=== PATIENT | female | born 1945 | race Caucasian/White ===

== ENCOUNTER 2018-05-02 04:43 | Emergency (ER) | payer OTHER, BC ==
--- NOTE | 2018-05-02 05:55 | EDPHYS ---
Physician Documentation [facility] Name: Yvette Barbour Age: 72 yrs Sex: Female : 1945 Arrival Date: 05/02/2018 Time: 04:52 Bed 17 Private MD: ED Physician Bonifacio Jones Historical: - Allergies: 05/02 05:04 No Known Allergies; jd3 - Home Meds: 05:04 alendronate oral oral [Active]; levothyroxine oral [Active]; meloxicam oral oral jd3 [Active]; Metoprolol Tartrate Oral [Active]; Omeprazole Oral [Active]; venlafaxine oral oral [Active]; Xarelto oral oral [Active]; - PMHx: 05:04 Atrial Fib; Hypertension; High Cholesterol; jd3 - PSHx: 05:04 right knee sx; Hysterectomy; Tonsillectomy; back sx; left breast sx; jd3 - Immunization history:: Adult Immunizations up to date. - Social history:: Smoking status: Patient/guardian denies using tobacco, the patient reports quitting approximately 32 years ago. - Ebola Screening: : Patient negative for fever greater than or equal to 101.5 degrees Fahrenheit, and additional compatible Ebola Virus Disease symptoms. Vital Signs: 05:05 BP 131 / 65; Pulse 69; Resp 18 S; Temp 97.8(O); Pulse Ox 95% on R/A; Weight 88 kg (R); jd3 Height 5 ft. 6 in. (167.64 cm) (R); Pain 10/10; 05:33 BP 131 / 61; Pulse 70; Resp 17 S; Pulse Ox 95% on 2 lpm NC; jd3 05:05 Body Mass Index 31.31 (88.00 kg, 167.64 cm) jd3 MDM: 05:55 Patient medically screened. kdr Administered Medications: No medications were administered Disposition: 05/02/18 05:55 Discharged to Home. Impression: Other slipping, tripping and stumbling and falls, Pain in right knee - Chronic. - Condition is Stable. - Discharge Instructions: Musculoskeletal Pain, Fall Prevention and Home Safety, [id number], Knee Pain, [id number]. - Medication Reconciliation Form, Thank You Letter form. - Follow up: Private Physician; When: 2 - 3 days; Reason: If symptoms return, Further diagnostic work-up, Recheck today's complaints, Continuance of care, Re-evaluation by your physician. - Problem is an ongoing problem. - Symptoms are unchanged. Signatures: Bonifacio Jones MD MD kdr Jose Patel RN RN jd3 Corrections: (The following items were deleted from the chart) 06:14 05:55 05/02/2018 05:55 Discharged to Home. Impression: Other slipping, tripping and jd3 stumbling and falls; Pain in right knee - Chronic. Condition is Stable. Forms are Medication Reconciliation Form, Thank You Letter, Antibiotic Education, Prescription Opioid Use. Follow up: Private Physician; When: 2 - 3 days; Reason: If symptoms return, Further diagnostic work-up, Recheck today's complaints, Continuance of care, Re-evaluation by your physician. Problem is an ongoing problem. Symptoms are unchanged. kdr
--- NOTE | 2018-05-02 05:55 | ER ---
Nurse's Notes [facility] Name: Yvette Barbour Age: 72 yrs Sex: Female : 1945 Arrival Date: 05/02/2018 Time: 04:52 Bed 17 Private MD: Diagnosis: Other slipping, tripping and stumbling and falls;Pain in right knee-Chronic Presentation: 05/02 04:52 Presenting complaint: EMS states: Pt had fallen this morning and when helped her up to jd3 bed, but pt refused to go to the hospital. We were called back out with pt reporting 10/10 pain in right knee which pt has had surgery the last Friday, April 22, 2018.". Transition of care: patient was not received from another setting of care. Onset of symptoms was May 02, 2018. Risk Assessment: Do you want to hurt yourself or someone else? Patient reports no desire to harm self or others. Initial Sepsis Screen: Does the patient meet any 2 criteria? No. Patient's initial sepsis screen is negative. Does the patient have a suspected source of infection? No. Patient's initial sepsis screen is negative. Care prior to arrival: Medication(s) given: pt took hydrocodone at 0430 and at 0330. 04:52 Method Of Arrival: EMS: [facility] jd3 04:52 Acuity: [place] 3 jd3 Historical: - Allergies: 05:04 No Known Allergies; jd3 - Home Meds: 05:04 alendronate oral oral [Active]; levothyroxine oral [Active]; meloxicam oral oral jd3 [Active]; Metoprolol Tartrate Oral [Active]; Omeprazole Oral [Active]; venlafaxine oral oral [Active]; Xarelto oral oral [Active]; - PMHx: 05:04 Atrial Fib; Hypertension; High Cholesterol; jd3 - PSHx: 05:04 right knee sx; Hysterectomy; Tonsillectomy; back sx; left breast sx; jd3 - Immunization history:: Adult Immunizations up to date. - Social history:: Smoking status: Patient/guardian denies using tobacco, the patient reports quitting approximately 32 years ago. - Ebola Screening: : Patient negative for fever greater than or equal to 101.5 degrees Fahrenheit, and additional compatible Ebola Virus Disease symptoms. Screenin:10 Abuse screen: Denies threats or abuse. Nutritional screening: No deficits noted. jd3 Tuberculosis screening: No symptoms or risk factors identified. Fall Risk Ambulatory Aid- Crutches/Cane/Walker (15 pts). Gait- Impaired (20 pts.). Mental Status- Oriented to own ability (0 pts). Total García Fall Scale indicates Low Risk Score (25-44 pts). Fall prevention measures have been instituted. Side Rails Up X 2 Placed close to Nursing Station Frequent Obs/Assesments occuring. Assessment: 05:06 General: Appears uncomfortable, Behavior is calm, cooperative, appropriate for age. jd3 Pain: Complains of pain in right knee Pain currently is 10 out of 10 on a pain scale. Quality of pain is described as aching, sharp, Is continuous, Aggravated by increased activity, weight bearing. Neuro: Level of Consciousness is awake, alert, obeys commands, Oriented to person, place, time, situation. Cardiovascular: Capillary refill < 3 seconds Patient's skin is warm and dry. Respiratory: Airway is patent Respiratory effort is even, unlabored, Respiratory pattern is regular, symmetrical. GI: Abdomen is round Patient currently denies nausea, vomiting. : No signs and/or symptoms were reported regarding the genitourinary system. EENT: No signs and/or symptoms were reported regarding the EENT system. Derm: Skin is intact, Skin is dry, Skin is normal, Skin temperature is warm surgical sight to right knee, with dressing in place. no drainage noted to dressing. Musculoskeletal: Circulation, motion, and sensation intact. Range of motion: intact in all extremities. 05:34 Reassessment: Patient appears in no apparent distress at this time. Patient and/or jd3 family updated on plan of care and expected duration. Pain level reassessed. Patient is alert, oriented x 3, equal unlabored respirations, skin warm/dry/pink. pt reports pain medication taken prior to arrival has kicked in, pt requesting to go home, provider notified. 06:11 Reassessment: Patient appears in no apparent distress at this time. Patient and/or jd3 family updated on plan of care and expected duration. Pain level reassessed. Patient is alert, oriented x 3, equal unlabored respirations, skin warm/dry/pink. pt reported understanding of discharge instructions, pt assisted to front of ER in wheelchair. Vital Signs: 05:05 BP 131 / 65; Pulse 69; Resp 18 S; Temp 97.8(O); Pulse Ox 95% on R/A; Weight 88 kg (R); jd3 Height 5 ft. 6 in. (167.64 cm) (R); Pain 10/10; 05:33 BP 131 / 61; Pulse 70; Resp 17 S; Pulse Ox 95% on 2 lpm NC; jd3 05:05 Body Mass Index 31.31 (88.00 kg, 167.64 cm) jd3 ED Course: 04:52 Patient arrived in ED. jd3 04:52 Bonifacio Jones MD is Attending Physician. kdr 05:00 Triage completed. jd3 05:06 Arm band placed on. jd3 05:10 Patient has correct armband on for positive identification. Bed in low position. Call jd3 light in reach. Side rails up X2. 05:15 Jose Patel, RN is Primary Nurse. jd3 06:10 No provider procedures requiring assistance completed. Patient did not have IV access jd3 during this emergency room visit. Administered Medications: No medications were administered Outcome: 05:55 Discharge ordered by . kdr 06:11 Discharged to home via wheelchair, with family. jd3 06:11 Condition: stable 06:11 Discharge instructions given to patient, family, Instructed on discharge instructions, follow up and referral plans. Demonstrated understanding of instructions, follow-up care. 06:14 Patient left the ED. jd3 Signatures: Bonifacio Jones MD MD [facility] Jose Patel, RN RN j
== END 2018-05-02 06:14 | disposition home or self-care (01) ==
LOC: ER 04:43
DX: M25.561 Pain in right knee (principal); I10 Essential (primary) hypertension; I48.91 Unspecified atrial fibrillation; E78.00 Pure hypercholesterolemia, unspecified; W01.0XXA Fall on same level from slipping, tripping and stumbling without subsequent striking against object, initial encounter; Y93.01 Activity, walking, marching and hiking; Y92.002 Bathroom of unspecified non-institutional (private) residence as the place of occurrence of the external cause
CPT/HCPCS: 99283

== ENCOUNTER 2018-12-18 10:19 | Emergency (ER) | payer OTHER, BC ==
[2018-12-18 10:58] LABS: Absolute Lymphocytes (CBC) 2.1 K/uL (0.7-4.9); Absolute Monocytes 0.6 K/uL (0.1-1.3); Absolute Neutrophil 4.2 K/uL (1.8-8.0); Basophils % 0.6 % (0-1.3); Hematocrit 36.8 % (36.0-45.0); Lymphocytes % 29.6 % (15.3-44.8); MPV 8.4 fL (7.6-11.3); Monocytes % 8.4 % (3.3-12.3)
[2018-12-18 11:04] LABS: Potassium 4.1 mmol/L (3.5-5.1)
--- NOTE | 2018-12-18 11:05 | RAD REPORT ---
EXAM DESCRIPTION: CT - Head Brain Wo Cont - 12/18/2018 10:52 am CLINICAL HISTORY: Confusion. Fall with head injury COMPARISON: None TECHNIQUE: Computed axial tomography of the head was obtained. IV contrast was not requested. All CT scans are performed using dose optimization technique as appropriate and may include automated exposure control or mA/KV adjustment according to patient size. FINDINGS: An intracranial bleed is not seen . The ventricles are normal in caliber. Cerebral atrophy is present No extra-axial fluid collection is noted. Moderate low-density areas within periventricular, deep and subcortical white matter likely represent ischemic changes secondary to small vessel disease. Fluid within the sinuses/ mastoids is not seen. IMPRESSION: No acute intracranial abnormality is seen. If patient's symptoms persist MRI of the bra in would be recommended.
--- NOTE | 2018-12-18 11:18 | RAD REPORT ---
EXAM DESCRIPTION: RAD - Knee Right 3 View - 12/18/2018 10:50 am CLINICAL HISTORY: Right knee pain FINDINGS: No fracture or dislocation is seen. Right knee arthroplasty. The medial aspect of the tibial prosthesis is offset with the medial aspect of the tibia by about 8 millimeters. No loosening of prosthesis is seen
[2018-12-18 12:24] LABS: Urine Bacteria <20 /HPF (<20); Urine RBC <5 /HPF (NONE SEEN)
[2018-12-18 12:25] LABS: Calcium Oxalate Crystals- Ur FEW (NONE SEEN); Urine Culture Reflex Order NOT NEEDED; Urine Mucus 3+ /HPF (NONE SEEN)
[2018-12-18 12:44] LABS: Urine Blood NEGATIVE (NEG); Urine Glucose NEGATIVE (NEG); Urine Protein NEGATIVE (NEG); Urine Specific Gravity 1.025 (1.005-1.030); Urine pH 5.5 (5.0-7.0)
--- NOTE | 2018-12-18 12:55 | EDPHYS ---
Physician Documentation [facility] Name: Yvette Barbour Age: 73 yrs Sex: Female : 1945 Arrival Date: 12/18/2018 Time: 10:27 Bed 16 Private MD: ED Physician Bonifacio Jones HPI: 12/18 10:55 This 73 yrs old Female presents to ER via EMS with complaints of Fall Injury, jr8 Altered Mental Status. 10:55 Details of fall: The patient fell from an upright position, while standing. Onset: The jr8 symptoms/episode began/occurred acutely, yesterday. Associated injuries: The patient sustained right knee. Severity of symptoms: At their worst the symptoms were mild, in the emergency department the symptoms are unchanged. The patient has not experienced similar symptoms in the past. The patient has not recently seen a physician. Daughter stated that she was with patient last night. When she came to check on her this morning noticed that she cannot recall that she had visited her and seems more confused in general. History of dementia but normally is not altered to this capacity . Historical: - Allergies: 10:33 No Known Allergies; em - Home Meds: 10:33 Metoprolol Tartrate Oral [Active]; Eliquis oral oral [Active]; em - PMHx: 10:33 Atrial Fib; High Cholesterol; Hypertension; em - PSHx: 10:33 right knee x 3; em - Immunization history:: Adult Immunizations unknown. - Social history:: Smoking status: unknown. - Ebola Screening: : Patient negative for fever greater than or equal to 101.5 degrees Fahrenheit, and additional compatible Ebola Virus Disease symptoms Patient denies exposure to infectious person Patient denies travel to an Ebola-affected area in the 21 days before illness onset No symptoms or risks identified at this time. ROS: 10:55 Eyes: Negative for injury, pain, redness, and discharge, ENT: Negative for injury, jr8 pain, and discharge, Neck: Negative for injury, pain, and swelling, Cardiovascular: Negative for chest pain, palpitations, and edema, Respiratory: Negative for shortness of breath, cough, wheezing, and pleuritic chest pain, Abdomen/GI: Negative for abdominal pain, nausea, vomiting, diarrhea, and constipation, Back: Negative for injury and pain, Skin: Negative for injury, rash, and discoloration. 10:55 MS/extremity: Positive for pain, tenderness, of the right knee. 10:55 Neuro: Positive for altered mental status, Negative for dizziness, gait disturbance, headache, hearing loss, loss of consciousness, numbness, seizure activity, speech changes, syncope, near syncope, tingling, tinnitus, tremor, visual changes, weakness. Exam: 10:57 Eyes: Pupils equal round and reactive to light, extra-ocular motions intact. Lids and jr8 lashes normal. Conjunctiva and sclera are non-icteric and not injected. Cornea within normal limits. Periorbital areas with no swelling, redness, or edema. ENT: Nares patent. No nasal discharge, no septal abnormalities noted. Tympanic membranes are normal and external auditory canals are clear. Oropharynx with no redness, swelling, or masses, exudates, or evidence of obstruction, uvula midline. Mucous membranes moist. Neck: Trachea midline, no thyromegaly or masses palpated, and no cervical lymphadenopathy. Supple, full range of motion without nuchal rigidity, or vertebral point tenderness. No Meningismus. Cardiovascular: Regular rate and rhythm with a normal S1 and S2. No gallops, murmurs, or rubs. Normal PMI, no JVD. No pulse deficits. Respiratory: Lungs have equal breath sounds bilaterally, clear to auscultation and percussion. No rales, rhonchi or wheezes noted. No increased work of breathing, no retractions or nasal flaring. Abdomen/GI: Soft, non-tender, with normal bowel sounds. No distension or tympany. No guarding or rebound. No evidence of tenderness throughout. Back: No spinal tenderness. No costovertebral tenderness. Full range of motion. Skin: Warm, dry with normal turgor. Normal color with no rashes, no lesions, and no evidence of cellulitis. 10:57 Musculoskeletal/extremity: Extremities: grossly normal except: noted in the right knee: pain, tenderness, ROM: intact in all extremities, Circulation is intact in all extremities. Sensation intact. 11:01 Neuro: Orientation: to person, place, time, Mentation: able to follow commands, Memory: jr8 immediate memory is intact, remote memory is intact. recent memory is impaired, Cranial nerves: CN I not tested, CN II- XII are normal as tested, visual arreguin are intact. extraocular movements are intact, Facial palsy and sensory deficits are absent. Nystagmus is absent. Speech is clear and appropriate. Cerebellar function: normal finger to nose testing, heel to estes testing is normal, Motor: moves all fours, Sensation: is normal, Gait: not tested. seizure activity, is not displayed by the patient, Abnormal movements: there are no abnormal movements. Vital Signs: 10:33 BP 148 / 70; Pulse 70; Resp 18; Pulse Ox 96% on R/A; em 11:30 BP 142 / 74; Pulse 63; Resp 16; Pulse Ox 97% on R/A; em 12:30 BP 144 / 68; Pulse 60; Resp 18; Pulse Ox 96% on R/A; em 13:30 BP 129 / 75; Pulse 58; Resp 18; Pulse Ox 95% on R/A; em MDM: 10:27 Patient medically screened. jr8 12:51 Data reviewed: vital signs, nurses notes, lab test result(s), EKG, radiologic studies, [facility] CT scan. Data interpreted: Pulse oximetry: on room air is 96 %. Interpretation: normal. Counseling: I had a detailed discussion with the patient and/or guardian regarding: the historical points, exam findings, and any diagnostic results supporting the discharge/admit diagnosis, lab results, radiology results, the need for outpatient follow up, a family practitioner, to return to the emergency department if symptoms worsen or persist or if there are any questions or concerns that arise at home. ED course: Discussed with patient and daughter that there are no acute neurologic findings on CT. No fracture of knee. Labs unremarkable. No urinary tract infection, no electrolyte, glucose, systemic infection, focal neurologic deficit, or ECG findings. Patient feels well and wants to go home. Daughter taking patient back to her house for close observation. Would return if something were to change . 12/18 10:28 Order name: CBC with Diff [facility] 12/18 10:28 Order name: Basic Metabolic Panel [facility] 12/18 10:28 Order name: Urine Microscopic Only [facility] 12/18 11:00 Order name: CBC with Automated Diff; Complete Time: 11:03 EDMS 12/18 11:05 Order name: Basic Metabolic Panel; Complete Time: 11:12 EDMS 12/18 11:28 Order name: Urine Dipstick--Ancillary (enter results) 12/18 10:28 Order name: IV; Complete Time: 10:49 [facility] 12/18 10:28 Order name: CT Head Brain wo Cont [facility] 12/18 10:28 Order name: XRAY Knee RIGHT 3 view [facility] 12/18 10:28 Order name: EKG; Complete Time: 10:29 [facility] 12/18 11:06 Order name: CT; Complete Time: 11:12 [facility] 12/18 11:18 Order name: RAD; Complete Time: 11:23 [facility] 12/18 12:26 Order name: Urine Microscopic Only; Complete Time: 12:46 [facility] 12/18 12:45 Order name: Urine Dipstick-Ancillary; Complete Time: 12:46 [facility] 12/18 10:28 Order name: Urine Dipstick-Ancillary (obtain specimen); Complete Time: 11:27 [facility] 12/18 10:28 Order name: Straight Cath - Urine; Complete Time: 11:27 [facility] 12/18 10:28 Order name: EKG - Nurse/Tech; Complete Time: 10:38 [facility] Administered Medications: No medications were administered Disposition: 15:36 Co-signature as Attending Physician, Bonifacio Jones MD I agree with the assessment and kdr plan of care. Disposition: 12/18/18 12:54 Discharged to Home. Impression: Altered mental status, unspecified. - Condition is Stable. - Discharge Instructions: Confusion, Dementia. - Medication Reconciliation Form, Thank You Letter, Antibiotic Education, Prescription Opioid Use form. - Follow up: Private Physician; When: 1 - 2 days; Reason: Recheck today's complaints, Continuance of care, Re-evaluation by your physician. - Problem is new. - Symptoms have improved. Signatures: Dispatcher [employer] Bonifacio Paul MD MD [facility] Zoltan Mackey, [employer] em Tyrone William PA PA jr8 Corrections: (The following items were deleted from the chart) 11:03 10:57 Musculoskeletal/extremity: Extremities: grossly normal except: noted in the right jr8 knee: pain, tenderness, ROM: intact in all extremities, Circulation is intact in all extremities. Sensation intact. jr8 14:05 12:54 12/18/2018 12:54 Discharged to Home. Impression: Altered mental status, em unspecified. Condition is Stable. Forms are Medication Reconciliation Form, Thank You Letter, Antibiotic Education, Prescription Opioid Use. Follow up: Private Physician; When: 1 - 2 days; Reason: Recheck today's complaints, Continuance of care, Re-evaluation by your physician. Problem is new. Symptoms have improved. jr8
--- NOTE | 2018-12-18 12:55 | ER ---
Nurse's Notes [facility] Name: Yvette Barbour Age: 73 yrs Sex: Female : 1945 Arrival Date: 12/18/2018 Time: 10:27 Bed 16 Private MD: Diagnosis: Altered mental status, unspecified Presentation: 12/18 10:29 Presenting complaint: EMS states: called out for witnessed mechanical fall at an em independent living facility, pt daughter at bedside states she is more altered than normal, pt does not remember falling, patient is alert to person, place, pt complains of pain in the right knee. Transition of care: patient was not received from another setting of care. Onset of symptoms was December 18, 2018. Risk Assessment: Do you want to hurt yourself or someone else? Patient reports no desire to harm self or others. Initial Sepsis Screen: Does the patient meet any 2 criteria? No. Patient's initial sepsis screen is negative. Does the patient have a suspected source of infection? No. Patient's initial sepsis screen is negative. Care prior to arrival: None. 10:29 Method Of Arrival: EMS: [facility] em 10:37 Acuity: [place] 2 ss Triage Assessment: 10:33 General: Appears in no apparent distress. comfortable, Behavior is calm, cooperative. em Pain: Complains of pain in right knee. Neuro: Level of Consciousness is awake, alert, obeys commands, Oriented to person, place, Analytics Manager are equal bilaterally Moves all extremities. Speech is normal, Facial symmetry appears normal, Pupils are. Respiratory: Historical: - Allergies: 10:33 No Known Allergies; em - Home Meds: 10:33 Metoprolol Tartrate Oral [Active]; Eliquis oral oral [Active]; em - PMHx: 10:33 Atrial Fib; High Cholesterol; Hypertension; em - PSHx: 10:33 right knee x 3; em - Immunization history:: Adult Immunizations unknown. - Social history:: Smoking status: unknown. - Ebola Screening: : Patient negative for fever greater than or equal to 101.5 degrees Fahrenheit, and additional compatible Ebola Virus Disease symptoms Patient denies exposure to infectious person Patient denies travel to an Ebola-affected area in the 21 days before illness onset No symptoms or risks identified at this time. Screenin:33 Abuse screen: no apparent signs noted. Nutritional screening: No deficits noted. em Tuberculosis screening: No symptoms or risk factors identified. Fall Risk Fall in past 12 months (25 points). Assessment: 10:35 General: Appears in no apparent distress. comfortable, Behavior is calm, cooperative. em Pain: Complains of pain in right knee. Neuro: Level of Consciousness is awake, alert, obeys commands, Oriented to person, place, Analytics Manager are equal bilaterally Gait is Speech is normal, Denies weakness dizziness, headache. Cardiovascular: Capillary refill < 3 seconds Patient's skin is warm and dry. Rhythm is sinus rhythm. Respiratory: Airway is patent Respiratory effort is even, unlabored, Respiratory pattern is regular, symmetrical. GI: Patient currently denies nausea, vomiting. Derm: Skin is intact, is healthy with good turgor, Skin is pink, warm \T\ dry. Musculoskeletal: Range of motion: intact in all extremities. 10:40 Reassessment: Patient appears in no apparent distress at this time. I agree with the sv above assessment. 11:21 Reassessment: Patient appears in no apparent distress at this time. Patient and/or em family updated on plan of care and expected duration. Pain level reassessed. skin pink warm and dry, respirations even and unlabored, alert and oriented to self and situation. 12:00 Reassessment: Patient appears in no apparent distress at this time. Patient and/or em family updated on plan of care and expected duration. Pain level reassessed. skin pink warm and dry, respirations even and unlabored, alert and oriented to self and situation. 13:10 Reassessment: Patient appears in no apparent distress at this time. Patient and/or em family updated on plan of care and expected duration. Pain level reassessed. Patient is alert, oriented x 3, equal unlabored respirations, skin warm/dry/pink. placed for discharge, daughter went home to get pt clothes. Vital Signs: 10:33 BP 148 / 70; Pulse 70; Resp 18; Pulse Ox 96% on R/A; em 11:30 BP 142 / 74; Pulse 63; Resp 16; Pulse Ox 97% on R/A; em 12:30 BP 144 / 68; Pulse 60; Resp 18; Pulse Ox 96% on R/A; em 13:30 BP 129 / 75; Pulse 58; Resp 18; Pulse Ox 95% on R/A; em ED Course: 10:27 Patient arrived in ED. pm1 10:27 Tyrone William PA is PHCP. jr8 10:27 Bonifacio Jones MD is Attending Physician. jr8 10:29 Zoltan Mackey LVN is Primary Nurse. em 10:33 Arm band placed on. em 10:35 Patient has correct armband on for positive identification. Placed in gown. Bed in low em position. Call light in reach. Side rails up X2. Adult w/ patient. instructional technology teacher on. Pulse ox on. NIBP on. 10:38 Triage completed. ss 10:42 EKG done, by certification technician. reviewed by Tyrone CURRY. at1 10:49 X-ray completed. Portable x-ray completed in exam room. Patient tolerated procedure sw well. 10:49 Initial lab(s) drawn, by me, sent to lab. Inserted saline lock: 20 gauge in left ms antecubital area, using aseptic technique. Blood collected. 11:26 Straight cath inserted, using sterile technique, 16 Fr. Specimen obtained. Returned ms clear yellow urine. Patient tolerated well. 13:10 No provider procedures requiring assistance completed. IV discontinued, intact, em bleeding controlled, No redness/swelling at site. Pressure dressing applied. Administered Medications: No medications were administered Outcome: 12:54 Discharge ordered by . [email or web address] 14:04 Discharged to home via wheelchair, with family. em 14:04 Condition: good 14:04 Discharge instructions given to patient, family, Instructed on discharge instructions, follow up and referral plans. Demonstrated understanding of instructions, follow-up care. 14:05 Patient left the ED. em Signatures: Mariela King, RN RN Zoltan Mackey, SHIPPING SUPPORT CLERK SHIPPING SUPPORT CLERK em Damaris Sy ms, Shelby, RN RN ss Tyrone William PA PA jr8 Rosana Weber, secretary board of commissioners EKG Hari1 Leesa Fields Patrick, CASANDRA HOUSEKEEPING ROOM ATTENDANT pm1
--- NOTE | 2018-12-18 13:52 | EKG ---
Test Date: 2018-12-18 Test Time: 10:34:09 Road Mender: [place] MEASUREMENT RESULTS: Intervals: Rate: 66 OR: 170 QRSD: 70 QT: 404 QTc: 423 Pollock: P: 40 OR: 170 QRS: 36 T: 28 INTERPRETIVE STATEMENTS: Normal sinus rhythm Normal ECG No previous ECG available for comparison Electronically Signed On 12-18-18 13:51:18 PHYSICIAN UNDERWRITER by Simón Islas
== END 2018-12-18 14:05 | disposition home or self-care (01) ==
LOC: ER 10:19
DX: R41.82 Altered mental status, unspecified (principal); W19.XXXA Unspecified fall, initial encounter; Y93.89 Activity, other specified; Y92.9 Unspecified place or not applicable; Z79.01 Long term (current) use of anticoagulants; I10 Essential (primary) hypertension; I48.91 Unspecified atrial fibrillation; E78.00 Pure hypercholesterolemia, unspecified; F03.90 Unspecified dementia, unspecified severity, without behavioral disturbance, psychotic disturbance, mood disturbance, and anxiety
CPT/HCPCS: 36415; 51702; 70450; 80048; 81003; 81015; 85025; 93005; 99284